=== PATIENT | female | born 1995 | race African-American/Black ===

== ENCOUNTER 2018-08-24 18:28 | Emergency (ER) | payer MEDICAID ==
[~2018-08-24] VITALS: Ht 175.3 cm; Wt 82.5 kg
[2018-08-24] MEDS ORDERED: TETANUS, DIPHTHERIA, PERTUSSIS VAC/PF 0.5ML (>7YR OLD) IM ONE (21:00)
[2018-08-24 21:14] VITALS: BP 140/90
== END 2018-08-24 21:15 | disposition home or self-care (01) ==
LOC: ER 18:28
DX: S00.83XA Contusion of other part of head, initial encounter (principal); S00.81XA Abrasion of other part of head, initial encounter; Z98.890 Other specified postprocedural states; X99.0XXA Assault by sharp glass, initial encounter; Y93.89 Activity, other specified; Y92.018 Other place in single-family (private) house as the place of occurrence of the external cause
CPT/HCPCS: 90471; 90715; 99283